=== PATIENT | female | born 1945 | race Caucasian/White ===

== ENCOUNTER 2022-05-27 09:17 | Emergency (ER) | payer MEDICARE ==
[~2022-05-27] VITALS: Ht 152.4 cm; Wt 77.3 kg
[2022-05-27 10:06] VITALS: BP 152/85
[2022-05-29] MEDS ORDERED: BUPR-317 PO (14:09)
[2022-05-29] MEDS ORDERED: LEVO-144 PO (14:09)
[2022-05-29] MEDS ORDERED: PRAV40TA3 PO (14:09)
[2022-05-29] MEDS ORDERED: LEVO50TA8 PO (14:09)
[2022-05-29] MEDS ORDERED: DIVA-76 PO (14:09)
== END 2022-05-27 11:41 | disposition home or self-care (01) ==
LOC: ER 09:17
DX: S50.02XA Contusion of left elbow, initial encounter (principal); S80.01XA Contusion of right knee, initial encounter; M54.2 Cervicalgia; M25.561 Pain in right knee; G30.9 Alzheimer's disease, unspecified; Z56.0 Unemployment, unspecified; X58.XXXA Exposure to other specified factors, initial encounter; Y93.89 Activity, other specified; Y92.89 Other specified places as the place of occurrence of the external cause; Y99.8 Other external cause status
CPT/HCPCS: 99283

== ENCOUNTER 2022-10-13 00:39 | Emergency (ER) | payer MEDICARE, BC ==
[~2022-10-13] VITALS: Ht 162.6 cm; Wt 77.3 kg
[~2022-10-13 00:39] MED LIST: BUPR-317 PO; DIVA-76 PO; LEVO50TA8 PO; PRAV40TA3 PO
[2022-10-13 02:03] VITALS: BP 170/84
== END 2022-10-13 04:37 | disposition left against medical advice (07) ==
LOC: ER 00:39
DX: M54.9 Dorsalgia, unspecified (principal); Z53.21 Procedure and treatment not carried out due to patient leaving prior to being seen by health care provider

== ENCOUNTER 2024-02-20 08:54 | Emergency (ER) | payer MEDICARE, BC ==
[~2024-02-20] VITALS: Ht 154.9 cm; Wt 86.2 kg
[2024-02-20 09:22] VITALS: BP 175/76; PULSE 86; TEMP 98.1; O2SAT 97
[2024-02-20 09:56] LABS: BILIRUBIN,URINE NEGATIVE (Neg); CLARITY,URINE TURBID (Clear); COLOR,URINE YELLOW (Yellow); GLUCOSE, URINE NEGATIVE (Neg); KETONES,URINE NEGATIVE (Neg); LEUKOCYTE ESTERASE ,URINE LARGE (Neg); NITRITES, URINE NEGATIVE (Neg); OCCULT BLOOD,URINE NEGATIVE (Neg); PH,URINE 7.5 (4.8-8.0); PROTEIN,URINE NEGATIVE (Neg); UROBILINOGEN,URINE 0.2 E.U/dL (0.2-1.0)
[2024-02-20 10:01] LABS: UA COLLECTION TYPE CLN CATCH MIDSTREAM
[2024-02-20 10:02] LABS: BACTERIA,URINE 3+ /HPF (Neg); SQUAMOUS EPITHELIAL CELL,UR MANY /LPF (FEW)
[2024-02-20 10:04] LABS: TRANSITIONAL EPI CELLS,URINE FEW /HPF
[2024-02-20] MEDS ORDERED: NITR100C6 PO (11:24)
[2024-02-20 11:31] VITALS: RESP 16
== END 2024-02-20 11:36 | disposition home or self-care (01) ==
LOC: ER 08:55
DX: N39.0 Urinary tract infection, site not specified (principal); F03.90 Unspecified dementia, unspecified severity, without behavioral disturbance, psychotic disturbance, mood disturbance, and anxiety; Z79.899 Other long term (current) drug therapy; Z56.0 Unemployment, unspecified
CPT/HCPCS: 81001; 99283

== ENCOUNTER 2024-03-27 18:36 | Emergency (ER) | payer MEDICARE, BC ==
[~2024-03-27] VITALS: Ht 170.2 cm; Wt 82.5 kg
[~2024-03-27 18:36] MED LIST changes: -BUPR-317 PO; +BUPR-561 PO; +NITR100C6 PO
[2024-03-27 19:11] LABS: BASOPHILS % (AUTO) 0.5 % (0-1); EOSINOPHILS # (AUTO) 0.1 X10'3 (0-0.9); HEMATOCRIT 40.6 % (35.0-45.0); HEMOGLOBIN 13.5 g/dl (12.0-16.0); LYMPHOCYTES # (AUTO) 1.2 X10'3 (1.1-4.8); LYMPHOCYTES % (AUTO) 15.6 % (21-51); MEAN CORPUSCULAR HEMOGLOBIN 31.9 PG (27.0-31.0); MEAN CORPUSCULAR HGB CONC 33.2 g/dL (33.0-36.5); MEAN PLATELET VOLUME 8.5 FL (7.4-10.4); MONOCYTES # (AUTO) 0.9 X10'3 (0-0.9); MONOCYTES % (AUTO) 12.1 % (2-12); NEUTROPHILS # (AUTO) 5.4 X10'3 (1.8-7.7); NEUTROPHILS % (AUTO) 70.8 % (42-75); PLATELET COUNT 282 X10'3 (140-440); RED BLOOD COUNT 4.23 X10'6 (4.20-5.60); RED CELL DISTRIBUTION WIDTH 13.5 % (11.5-14.5); WHITE BLOOD COUNT 7.6 X10'3 (4.5-11.0)
[2024-03-27] MEDS: albuterol 2.5 MG/3 ML nebule NEB ONE (19:16)
[2024-03-27 19:19] VITALS: PULSE 94; RESP 16; O2SAT 97
[2024-03-27 19:23] VITALS: PULSE 91; RESP 16; O2SAT 100
[2024-03-27 20:15] LABS: BILIRUBIN,URINE NEGATIVE (Neg); CLARITY,URINE CLEAR (Clear); COLOR,URINE YELLOW (Yellow); GLUCOSE, URINE NEGATIVE (Neg); KETONES,URINE 15 mg/dl (Neg); LEUKOCYTE ESTERASE ,URINE NEGATIVE (Neg); NITRITES, URINE NEGATIVE (Neg); OCCULT BLOOD,URINE NEGATIVE (Neg); PROTEIN,URINE NEGATIVE (Neg)
[2024-03-27 20:18] LABS: ALANINE AMINOTRANSFERASE 28 U/L (12-78); ALBUMIN 2.7 G/DL (3.4-5.0); ALBUMIN/GLOBULIN RATIO 0.7 (1.1-1.5); ALKALINE PHOSPHATASE 86 IU/L (46-116); ANION GAP 10 (8-16); ASPARTATE AMINO TRANSFERASE 16 U/L (10-37); BILIRUBIN,TOTAL 0.3 MG/DL (0.1-1.0); BLOOD UREA NITROGEN 19 MG/DL (7-18); BUN/CREATININE RATIO 19.4 (10.0-20.0); CHLORIDE 105 MMOL/L (99-107); CREATININE 0.98 MG/DL (0.40-0.90); GLUCOSE 108 MG/DL (70-104); POTASSIUM 4.3 MMOL/L (3.5-5.1); SODIUM 141 MMOL/L (135-145); TOTAL CARBON DIOXIDE 25.8 MMOL/L (24-32); TOTAL PROTEIN 6.5 G/DL (6.4-8.2); eCRCL 45 ML/MIN; eGFR 55 ML/MIN
[2024-03-27 20:19] LABS: UA COLLECTION TYPE STRAIGHT CATH
[2024-03-27 23:54] VITALS: BP 124/78; PULSE 84; RESP 16; TEMP 98.3; O2SAT 98
== END 2024-03-27 23:56 ==
LOC: ER 18:36
DX: F03.90 Unspecified dementia, unspecified severity, without behavioral disturbance, psychotic disturbance, mood disturbance, and anxiety (principal); R40.4 Transient alteration of awareness; N39.0 Urinary tract infection, site not specified; Z79.899 Other long term (current) drug therapy
CPT/HCPCS: 36415; 71045; 80053; 81003; 85025; 94640; 99284; C1758; Z7610